=== PATIENT | female | born 1995 ===

== ENCOUNTER 2017-02-03 08:06 | Emergency (ER) | payer MEDICAID, OTHER ==
[2017-02-03 08:06] VITALS: BMI 24.3
[2017-02-03 08:27] VITALS: BP 112/73; PULSE 91; RESP 18; TEMP 98; O2SAT 99
--- NOTE | 2017-02-03 09:00 | C.PDOC ---
History Of Present Illness 21 y/o female presents to the ED with complains of rash to inner thighs and armpits x1 week. Pt states she usually takes very hot baths and has had similar symptoms in the past after bath, symptoms worse this time. Pt used OTC calamine without relief. Denies SOB, fever or any other complaints. Chief Complaint (Nursing): Abnormal Skin Integrity History Per: Patient History/Exam Limitations: no limitations Onset/Duration Of Symptoms: Days Current Symptoms Are (Timing): Still Present Severity: Mild Recent travel outside of the [place]: No Past Medical History Reviewed: Historical Data, Nursing Documentation, Vital Signs Vital Signs: Last Vital Signs Temp 98 F 02/03/17 08:16 Pulse 91 H 02/03/17 08:16 Resp 18 02/03/17 08:16 BP 112/73 02/03/17 08:16 Pulse Ox 99 02/03/17 09:00 - [facility] Procedures EXTRACTION OF POC, LOW CERVICAL, OPEN APPROACH (09/13/16) Family History: States: Unknown Family Hx - Social History Hx Tobacco Use: No Hx Alcohol Use: No Hx Substance Use: No - Immunization History Hx Tetanus Toxoid Vaccination: No Hx Influenza Vaccination: No Hx Pneumococcal Vaccination: No Review Of Systems Except As Marked, All Systems Reviewed And Found Negative. Constitutional: Negative for: Fever Respiratory: Negative for: Shortness of Breath Skin: Positive for: Rash (inner thighs and armpits) Physical Exam - Physical Exam Appears: Non-toxic, No Acute Distress Skin: Warm, Dry, Rash (folliculitis to bilateral inner thighs and axilla; no evidence of abscess) Head: Atraumatic, Normacephalic Neck: Normal ROM Chest: Symmetrical Cardiovascular: Rhythm Regular Respiratory: Normal Breath Sounds, No Rales, No Rhonchi, No Wheezing Extremity: Normal ROM Extremity: Bilateral: Atraumatic Neurological/Psych: Oriented x3, Normal Speech ED Course And Treatment O2 Sat by Pulse Oximetry: 99 (room air) Pulse Ox Interpretation: Normal Progress Note: Plan: Cipro PO, discharge home. Disposition - Disposition Disposition: HOME/ ROUTINE Disposition Time: 08:57 Condition: STABLE Additional Instructions: Follow up with PMD within 1-2 days. Return to ED if feel worse. Prescriptions: Ciprofloxacin [Cipro] 1 tab PO BID #14 tab Instructions: Folliculitis (ED) Print Language: UZBEK - Clinical Impression Clinical Impression: Folliculitis - PA / [employer] / Resident Statement MD/DO has reviewed & agrees with the documentation as recorded. - Scribe Statement The provider has reviewed the documentation as recorded by the Samaraibmicky Palomino All medical record entries made by the Temo were at my direction and personally dictated by me. I have reviewed the chart and agree that the record accurately reflects my personal performance of the history, physical exam, medical decision making, and the department course for this patient. I have also personally directed, reviewed, and agree with the discharge instructions and disposition.
== END 2017-02-03 09:10 | disposition home or self-care (01) ==
LOC: C.ER 08:06
DX: L73.9 Follicular disorder, unspecified (principal)

== ENCOUNTER 2017-04-24 15:46 | Emergency (ER) | payer OTHER, MEDICAID ==
[2017-04-24 15:47] VITALS: BMI 24.3
--- NOTE | 2017-04-24 18:20 | C.PDOC ---
History Of Present Illness 21 y/o female presents to the ED with complaints of right breast pain x3 days and fever (103) x1 day. Pt currently breast feeding and has been nursing from both breasts. Pt also reports myalgias today. Pain 10/10 to right breast, engorged and leaking. Denies abdominal pain, back pain, or any other complaints. Time Seen by Provider: 04/24/17 16:18 Chief Complaint (Nursing): Fever History Per: Patient History/Exam Limitations: no limitations Onset/Duration Of Symptoms: Days Current Symptoms Are (Timing): Still Present Location Of Pain: Diffuse Myalgias Sick Contacts (Context): None Associated Symptoms: Fever Severity: Moderate Recent travel outside of the [place]: No Past Medical History Reviewed: Historical Data, Nursing Documentation, Vital Signs Vital Signs: Last Vital Signs Temp 100.2 F H 04/24/17 18:43 Pulse 92 H 04/24/17 18:43 Resp 18 04/24/17 18:43 BP 128/72 04/24/17 18:43 Pulse Ox 98 04/24/17 18:43 - [facility] Procedures EXTRACTION OF POC, LOW CERVICAL, OPEN APPROACH (09/13/16) Family History: States: Unknown Family Hx - Social History Hx Tobacco Use: No Hx Alcohol Use: No Hx Substance Use: No - Immunization History Hx Tetanus Toxoid Vaccination: No Hx Influenza Vaccination: No Hx Pneumococcal Vaccination: No Review Of Systems Except As Marked, All Systems Reviewed And Found Negative. Constitutional: Positive for: Fever, Other (myalgias) Gastrointestinal: Negative for: Abdominal Pain Musculoskeletal: Negative for: Back Pain Skin: Positive for: Other (right breast pain, engorgement and leakage) Physical Exam - Physical Exam Appears: Non-toxic, No Acute Distress Skin: Warm, Dry, No Rash Head: Atraumatic, Normacephalic Neck: Normal, Normal ROM, Supple Chest: Symmetrical, Other (right breast engorged and draining; no redness, erythema, abscess, induration or fluctuance) Cardiovascular: Rhythm Regular, No Murmur Respiratory: Normal Breath Sounds, No Rales, No Rhonchi, No Wheezing Gastrointestinal/Abdominal: Normal Exam, Soft, No Tenderness Neurological/Psych: Oriented x3, Normal Speech, Normal Cognition ED Course And Treatment O2 Sat by Pulse Oximetry: 100 (room air) Pulse Ox Interpretation: Normal Progress Note: Plan: motrin, tylenol, keflex Disposition Counseled Patient/Family Regarding: Diagnosis, Need For Followup, Rx Given - Disposition Disposition: HOME/ ROUTINE Disposition Time: 18:17 Condition: GUARDED Prescriptions: Cephalexin [cephalexin] 1,000 mg PO BID #40 cap Ibuprofen [Motrin] 600 mg PO TID #15 tab Instructions: Mastitis (ED) Forms: Gen Discharge Inst Portuguese - POA Present On Arrival: None - Clinical Impression Clinical Impression: Fever, Mastitis without abscess - Scribe Statement The provider has reviewed the documentation as recorded by the Temo Palomino Provider Attestation: All medical record entries made by the Temo were at my direction and personally dictated by me. I have reviewed the chart and agree that the record accurately reflects my personal performance of the history, physical exam, medical decision making, and the department course for this patient. I have also personally directed, reviewed, and agree with the discharge instructions and disposition.
[2017-04-24 18:44] VITALS: RESP 18; TEMP 100.2
[2017-04-24 18:45] VITALS: BP 128/72; PULSE 92
[2017-04-24 18:59] VITALS: O2SAT 100
== END 2017-04-24 18:45 | disposition home or self-care (01) ==
LOC: C.ER 15:46
DX: N61.0 Mastitis without abscess (principal); R50.9 Fever, unspecified

== ENCOUNTER 2017-12-21 16:54 | Emergency (ER) | payer MEDICAID, OTHER ==
[2017-12-21 16:54] VITALS: BMI 24.3
[2017-12-21 17:09] VITALS: BP 111/77; PULSE 83; RESP 16; TEMP 98.8; O2SAT 99
--- NOTE | 2017-12-21 17:46 | C.PDOC ---
History Of Present Illness 22 y/o female presents to the ED for evaluation of an itchy rash to her leg and underneath her breast region which began approx 1 year ago. Patient states she is recently and is currently breast feeding. 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 She denies fever, chills, runny nose, sore throat, abdominal pain Time Seen by Provider: 12/21/17 17:14 Chief Complaint (Nursing): Abnormal Skin Integrity History Per: Patient History/Exam Limitations: no limitations Onset/Duration Of Symptoms: Intermittent Episodes (1 year ) Current Symptoms Are (Timing): Still Present Quality Of Symptoms: Itching Severity: Mild Additional History Per: Patient Past Medical History Reviewed: Historical Data, Nursing Documentation, Vital Signs Vital Signs: Last Vital Signs Temp 98.8 F 12/21/17 17:05 Pulse 83 12/21/17 17:05 Resp 16 12/21/17 17:05 BP 111/77 12/21/17 17:05 Pulse Ox 99 12/21/17 23:28 - Medical History PMH: No Chronic Diseases Surgical History: No Surg Hx - [facility] Procedures EXTRACTION OF POC, LOW CERVICAL, OPEN APPROACH (09/13/16) Family History: States: No Known Family Hx - Social History Hx Tobacco Use: No Hx Alcohol Use: No Hx Substance Use: No - Immunization History Hx Tetanus Toxoid Vaccination: No Hx Influenza Vaccination: Yes Hx Pneumococcal Vaccination: No Review Of Systems Except As Marked, All Systems Reviewed And Found Negative. Constitutional: Negative for: Fever, Chills ENT: Negative for: Nose Discharge, Nose Congestion, Throat Pain Respiratory: Negative for: Cough, Shortness of Breath Gastrointestinal: Negative for: Nausea, Vomiting, Abdominal Pain, Diarrhea Skin: Positive for: Rash Physical Exam - Physical Exam Appears: Well, Non-toxic, No Acute Distress Skin: Normal Color, Warm, Dry, Rash (erythematous, dry scaly-appearing, non- vesicular rash to right lateral thigh and below breasts. eczematous appearing ) Oral Mucosa: Moist Tongue: Normal Appearing, No Swelling Lips: Normal Appearing, No Swelling Neck: Supple Cardiovascular: Rhythm Regular Respiratory: Normal Breath Sounds, No Rales, No Rhonchi, No Wheezing Neurological/Psych: Oriented x3 ED Course And Treatment O2 Sat by Pulse Oximetry: 99 (on RA ) Pulse Ox Interpretation: Normal Progress Note: Suspect eczema - patient given Rxs for hydrocortison cream and colloidal oatmeal. She was instructed to follow up with dermatology within 1 week. Patient understands she should return to ED if symptoms worsen. Disposition Counseled Patient/Family Regarding: Diagnosis, Need For Followup, Rx Given - Disposition Referrals: [facility] [Outside] Disposition: HOME/ ROUTINE Disposition Time: 17:45 Condition: STABLE Additional Instructions: SEGUIMIENTO CON DERMATOLOGA DENTRO DE 1 SEMANA USE MEDICAMENTOS SEGN LO INDICADO MANTENGA LA PIEL ISABEL HIDRATADA, JENIFER ABUNDANTE AGUA REGRESE AL MICHAEL DE EMERGENCIA SI LOS SNTOMAS EMPEORAN FOLLOW UP WITH DERMATOLOGY WITHIN 1 WEEK USE MEDICATIONS DIRECTED KEEP SKIN WELL HYDRATED, DRINK PLENTY OF WATER RETURN TO EMERGENCY ROOM IF SYMPTOMS WORSEN Prescriptions: Colloidal Oatmeal [Eczema] 1 appl TP TID #1 bottle Hydrocortisone 1% Oint [Cortizone 1% Oint] 1 appl TP BID #1 tube Instructions: Eczema (Atopic Dermatitis) (DC) Forms: [employer] (Albanian) Print Language: THAI - POA Present On Arrival: None - Clinical Impression Clinical Impression: Eczema - Scribe Statement The provider has reviewed the documentation as recorded by the Scribe (Delmi Alexander) Provider Attestation: All medical record entries made by the Scribe were at my direction and personally dictated by me. I have reviewed the chart and agree that the record accurately reflects my personal performance of the history, physical exam, medical decision making, and the department course for this patient. I have also personally directed, reviewed, and agree with the discharge instructions and disposition.
== END 2017-12-21 17:57 | disposition home or self-care (01) ==
LOC: C.ER 16:54
DX: L30.9 Dermatitis, unspecified (principal)

== ENCOUNTER 2018-11-03 13:11 | Emergency (ER) | payer MEDICAID, OTHER ==
[2018-11-03 13:33] VITALS: BMI 23.6
[2018-11-03 13:36] VITALS: BP 105/72; PULSE 80; RESP 18; TEMP 98; O2SAT 98
--- NOTE | 2018-11-03 14:18 | C.PDOC ---
History Of Present Illness 23 y/o female presents to the ED complaining of loose stools associated with subjective fever and malaise for the past 2 days. She reports she has 2 kids at home with the same. Denies possibility of . Patient has not taken any meds for symptom relief. Time Seen by Provider: 11/03/18 13:45 Chief Complaint (Nursing): GI Problem History Per: Patient History/Exam Limitations: no limitations Onset/Duration Of Symptoms: Days (x 2) Current Symptoms Are (Timing): Still Present Location Of Pain: Diffuse Myalgias, Headache Sick Contacts (Context): Family Member(s) (children) Past Medical History Reviewed: Historical Data, Nursing Documentation, Vital Signs Vital Signs: Last Vital Signs Temp 98 F 11/03/18 13:33 Pulse 80 11/03/18 13:33 Resp 18 11/03/18 13:33 BP 105/72 11/03/18 13:33 Pulse Ox 98 11/03/18 13:33 - Medical History PMH: No Chronic Diseases Surgical History: - [facility] Procedures EXTRACTION OF POC, LOW CERVICAL, OPEN APPROACH (09/13/16) Family History: States: Unknown Family Hx - Social History Hx Tobacco Use: No Hx Alcohol Use: No Hx Substance Use: No - Immunization History Hx Tetanus Toxoid Vaccination: No Hx Influenza Vaccination: Yes Hx Pneumococcal Vaccination: No Review Of Systems Constitutional: Positive for: Fever Cardiovascular: Negative for: Chest Pain Respiratory: Negative for: Cough, Shortness of Breath Gastrointestinal: Positive for: Nausea, Vomiting, Diarrhea. Negative for: Hematochezia Genitourinary: Negative for: Dysuria Musculoskeletal: Negative for: Back Pain Skin: Negative for: Rash Neurological: Positive for: Headache. Negative for: Weakness, Numbness Physical Exam - Physical Exam Appears: Non-toxic, No Acute Distress Skin: Warm, Dry Head: Atraumatic, Normacephalic Eye(s): bilateral: Normal Inspection, PERRL, EOMI Oral Mucosa: Moist Throat: Erythema (mild pharyngeal erythema), No Exudate Neck: Supple Lymphatic: No Adenopathy Chest: Symmetrical Cardiovascular: Rhythm Regular, No Murmur Respiratory: Normal Breath Sounds, No Accessory Muscle Use, No Rhonchi, No Wheezing Gastrointestinal/Abdominal: Soft, No Tenderness, No Distention Extremity: Bilateral: Atraumatic, Normal ROM Neurological/Psych: Oriented x3, Normal Speech ED Course And Treatment O2 Sat by Pulse Oximetry: 98 (RA) Pulse Ox Interpretation: Normal Medical Decision Making Medical Decision Making: mild viral syndrome diarrhea not children @ home w same. Disposition Doctor Will See Patient In The: Office Counseled Patient/Family Regarding: Studies Performed, Diagnosis - Disposition Referrals: [facility] [Outside] [facility] [Outside] [facility] [Outside] [facility] [Outside] Disposition: HOME/ ROUTINE Disposition Time: 14:18 Condition: GOOD Additional Instructions: dieta de BRAT: bananas, arroz watson, manzana, liu indra agua/jugo/Gatorade Ibuprofeno 400-600 mg cada 6 horas edith necessario para misael y fiebre. Sigue con la [facility] edith necessario Instructions: Diarrhea in Adolescents and Adults Forms: [facility] (Mongolian) Print Language: ARABIC - Clinical Impression Clinical Impression: Diarrhea - Scribe Statement The provider has reviewed the documentation as recorded by the Temo Pagan Provider Attestation: All medical record entries made by the Scribe were at my direction and personally dictated by me. I have reviewed the chart and agree that the record accurately reflects my personal performance of the history, physical exam, medical decision making, and the department course for this patient. I have also personally directed, reviewed, and agree with the discharge instructions and disposition.
== END 2018-11-03 14:40 | disposition home or self-care (01) ==
LOC: C.ER 13:11
DX: R19.7 Diarrhea, unspecified (principal)

== ENCOUNTER 2018-12-08 08:32 | Emergency (ER) | payer OTHER ==
[2018-12-08 08:48] VITALS: BMI 24.7
[2018-12-08 08:57] VITALS: O2SAT 100
[2018-12-08] MEDS ORDERED: Lidocaine 1% w Epi 1:100,000 Inj INJ STA (09:20)
--- NOTE | 2018-12-08 09:20 | C.PDOC ---
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 Patient states she accidentally cut herself on glass that was sticking out of a garbage bag. No other injuries or associated complaints. Patient denies any sensory changes or weakness. Time Seen by Provider: 12/08/18 09:17 Chief Complaint (Nursing): Abnormal Skin Integrity History Per: Patient History/Exam Limitations: no limitations Onset/Duration Of Symptoms: Mins Current Symptoms Are (Timing): Still Present Location Of Injury: Left: Leg Past Medical History Reviewed: Historical Data, Nursing Documentation, Vital Signs Vital Signs: Last Vital Signs Temp 99.0 F 12/08/18 08:48 Pulse 71 12/08/18 08:48 Resp 17 12/08/18 08:48 BP 115/71 12/08/18 08:48 Pulse Ox 100 12/08/18 08:48 Surgical History: - [facility] Procedures EXTRACTION OF POC, LOW CERVICAL, OPEN APPROACH (09/13/16) Family History: States: Unknown Family Hx - Social History Hx Tobacco Use: No Hx Alcohol Use: Yes Hx Substance Use: No - Immunization History Hx Tetanus Toxoid Vaccination: No (No) Hx Influenza Vaccination: Yes (2018) Hx Pneumococcal Vaccination: No Review Of Systems Except As Marked, All Systems Reviewed And Found Negative. Constitutional: Negative for: Fever, Chills Musculoskeletal: Positive for: Leg Pain Skin: Positive for: Lesions (laceration to left leg) Neurological: Negative for: Weakness, Numbness Physical Exam - Physical Exam Appears: Well, Non-toxic, No Acute Distress Skin: Normal Color, Other (Laceration to the left lateral lower leg, minimal active bleeding noted, no foreign body) Head: Atraumatic, Normacephalic Eye(s): bilateral: Normal Inspection Neck: Normal ROM Chest: Symmetrical Respiratory: No Accessory Muscle Use, Other (NARD) Pulses: Left Dorsalis Pedis: Normal, Right Dorsalis Pedis: Normal Neurological/Psych: Oriented x3, Normal Motor, Normal Sensation, Other (No focal deficits) Gait: Steady ED Course And Treatment O2 Sat by Pulse Oximetry: 100 (RA) Pulse Ox Interpretation: Normal Laceration - Laceration Repair No standard instances Wound Length (In cm): 3 Description Of Wound: Linear, Clean Wound Cleansed With: Betadine, Sterile Saline Anesthesia: Lidocaine 1%, With Epi Wound Examination: Irrigated With Saline, No FB With Wound Exploration Wound Closure: Janina (3) Wound Complexity: Simple Medical Decision Making Medical Decision Making: Plan: - Laceration repaired, tolerated well by patient Patient is stable for d/c home. Educated regarding wound care and follow-up instructions. Disposition Counseled Patient/Family Regarding: Diagnosis, Need For Followup - Disposition Referrals: [facility] [Provider Group] Disposition: HOME/ ROUTINE Disposition Time: 10:02 Condition: IMPROVED Additional Instructions: VUELVA EN 7 BOYD PARA LA EXTRACCIN DE GRAPAS. REGRESAR PRONTO A LOS SIGNOS DE INFECCIN Instructions: Laceration Repair With Janina (DC) Forms: [employer] (Guyanese) Print Language: BELGIAN - Clinical Impression Clinical Impression: Leg laceration - Scribe Statement The provider has reviewed the documentation as recorded by the Samaraibmicky Pagan Provider Attestation: All medical record entries made by the Samaraibe were at my direction and personally dictated by me. I have reviewed the chart and agree that the record accurately reflects my personal performance of the history, physical exam, medical decision making, and the department course for this patient. I have also personally directed, reviewed, and agree with the discharge instructions and disposition.
[2018-12-08 10:07] VITALS: BP 111/69; PULSE 62; RESP 16; TEMP 98.4
== END 2018-12-08 10:11 | disposition home or self-care (01) ==
LOC: C.ER 08:32
DX: S81.812A Laceration without foreign body, left lower leg, initial encounter (principal); W25.XXXA Contact with sharp glass, initial encounter